=== PATIENT | female | born 1940 | race Caucasian/White ===

== ENCOUNTER 2017-06-30 07:42 | Inpatient (IN) | payer MEDICARE ==
[2017-06-30] MEDS ORDERED: Diazepam TAB(*) 5 MG ONE (08:34)
[2017-06-30 09:10] LABS: Hematocrit 41 % (35-47); Hemoglobin 13.8 g/dl (12.0-16.0); Mean Corpuscular HGB Conc 34 g/dl (31-36); Mean Corpuscular Hemoglobin 33 pg (27-31); Mean Corpuscular Volume 98 fL (80-97); Mean Platelet Volume 9 um3 (7.4-10.4); Red Blood Count 4.22 10^6/ul (4.0-5.4); Red Cell Distribution Width 13 % (10.5-15); White Blood Count 4.1 10^3/ul (3.5-10.8)
[2017-06-30 09:23] LABS: BUN/Creatinine Ratio 34.4 (8-20); Calcium 9.7 mg/dL (8.6-10.3); EGFR Non-African American 90.2 (>60)
[2017-06-30] MEDS ORDERED: Naloxone* 0.4 MG/ML 1 ML VIAL ONE (09:31)
[2017-06-30] MEDS ORDERED: Iohexol 300 (CONTRAST) 10 ML SDV ONE ×2 (09:31→10:30)
[2017-06-30] MEDS ORDERED: Midazolam* 1 MG/ML 5 ML VIAL (5 MG) ONE ×2 (09:31→10:17)
[2017-06-30] MEDS ORDERED: fentaNYL* 50 MCG/ML 2 ML VIAL (100 MCG VIAL) ONE (09:31)
[2017-06-30] MEDS ORDERED: Flumazenil* 0.1 MG/ML 5 ML MDV ONE (09:31)
[2017-06-30] MEDS ORDERED: Lidocaine 1% INJ* 10 MG/ML 30 ML SDV ONE (09:31)
[2017-06-30] MEDS ORDERED: Clindamycin 900 MG IVPREMIX(* 900 MG/50 ML SDV IV ONE (10:00)
[2017-06-30] MEDS ORDERED: Atropine SYRINGE* 0.1 MG/ML 10 ML SYRINGE (1 MG) ONE (10:02)
[2017-06-30] MEDS ORDERED: Acetaminophen TAB* 325 MG PO PRN (11:27)
--- NOTE | 2017-06-30 14:28 | RAD ---
Indication: Pacemaker placement. Single frontal view of the chest performed at 1243 hours was reviewed. No prior study is available for comparison. No mediastinal shift is noted. Heart is of normal size and configuration. Lung kirkpatrick appear clear. Pacemaker leads are in place. No pneumothorax is noted. IMPRESSION: NO ACTIVE CARDIOPULMONARY DISEASE IS NOTED.
[2017-06-30] MEDS: Clindamycin 300 MG IVPREMIX(* 300 MG/50 ML SDV IV SCH (18:17)
[2017-06-30] MEDS: Latanoprost 0.005%* 2.5 ml BTL BOTH EYES SCH (19:57)
[2017-06-30] MEDS: Zolpidem TAB* 10 MG PO PRN (19:57)
--- NOTE | 2017-07-01 00:13 | HP ---
CC: Dr. Easton; ALEX Steele * HISTORY AND PHYSICAL: DATE OF ADMISSION: 06/30/17 CHIEF COMPLAINT: Syncope. HISTORY OF PRESENT ILLNESS: Ms. Sorenson is a 77-year-old woman followed by Dr. Easton. She has had recurrent syncopal episodes and two in the last week. She had an episode eating Thanksgiving dinner where she felt acutely lightheaded and fell out of her chair waking up on the floor, and then recently when she bent over to tie her shoe, she felt lightheaded. Workup through Dr. Easton's office included a Holter monitor, which revealed both sick sinus syndrome with sinus pauses but additionally intermittent complete heart block with either no escape beats or very slow escape rhythm and the patient was advised to undergo pacemaker implantation immediately, she delayed this 24 hours and presented to the hospital today for pacemaker implantation and admission. The patient denied recent fevers, chills, or sweats. She is a right-handed person. No awareness of tick bites or rashes recently. PAST MEDICAL HISTORY: 1. The patient has past cardiac history of cardiomyopathy. 2. Left bundle branch block. 3. Mild dilatation of the ascending aorta. 4. Additional past medical history of irritable bowel syndrome. 5. Chronic fatigue syndrome. 6. Insomnia. 7. Hypothyroid disease. 8. Glaucoma. PAST SURGICAL HISTORY: Includes: 1. Cataract removal in 2004. 2. Tonsillectomy. 3. Foot surgeries in the past (bunselma 2008). OUTPATIENT MEDICATIONS: Include: 1. Calcium 800 mg a day. 2. Vitamin D3, 500 units 2 tablets daily. 3. Multivitamins 1 tablet daily. 4. Vitamin C 1000 mg a day. 5. Donna-C 2 mg t.i.d. 6. Vitamin E 400 units b.i.d. 7. [place] rea 400 mg t.i.d. 8. Pycnogenol 100 mg b.i.d. 9. Magnesium 2 g a day. 10. Probiotic 1 tablet daily. 11. Latanoprost ophthalmic drops 0.005%, 1 drop each eye h.s. 12. Bioidentical hormones b.i.d. 13. Thyroid hormone 175 mcg a day. 14. Coenzyme Q 200 mg b.i.d. ALLERGIES: Include PENICILLIN (hives). FAMILY HISTORY: Significant in that her father had a history of emphysema and of lung cancer, mother of heart disease in her 70s. She has a sibling with breast cancer and diabetes. SOCIAL HISTORY: The patient is , lives with her who is quite dependent on her and controlling. She is retired from [employer]. Former smoker. No history of alcohol use. PHYSICAL EXAMINATION GENERAL: The patient is an older woman, lying in bed at 30 degrees in no acute distress. VITAL SIGNS: The patient is 5 feet 6 inches, weighs 138 pounds with BMI of 22. On arrival, blood pressure 155/77, pulse was 67 and regular, oxygen saturation was 88% on room air, respiratory rate of 14. HEENT: Pupils equal and round. Mucous membranes are moist. NECK: Without increased JVP appreciated. Good carotid pulses. No audible bruits. LUNGS: Breath sounds clear with good affect. No wheezes, rales, or rhonchi. CORONARY: S1 and S2 regular with a 3/6 systolic murmur heard along the left sternal border. ABDOMEN: Soft and nontender. No hepatosplenomegaly or masses. EXTREMITIES: Lower extremities were free of edema and warm. NEUROLOGIC: Awake, alert, and oriented to person, place, and time. Cranial nerves II through XII intact. Grossly normal sensory and motor function in the upper and lower extremities as examined in the bed. Gait not checked. PSYCHOLOGIC: Pleasant and cooperative. SKIN: Warm and dry. No appreciable cyanosis of the lips or nail beds. DIAGNOSTIC DATA/LABORATORY DATA: Holter monitor from 06/28/17 reviewed as above showing normal sinus rhythm with sick sinus syndrome, episodic sinus rhythm with complete heart block and periods of asystole as well as episodes with a junctional escape rhythm and AV dissociation with a longstanding left bundle branch block. She also had episodes of premature atrial complexes and supraventricular tachycardia. The patient had episodes of weakness and nausea that correlated with an episode of asystole lasting 20 seconds and with episode of complete heart block with a very slow escape rhythm. The patient's echocardiogram from 05/05/16 showed [id number] left ventricular hypertrophy with an ejection fraction of 35% to 40% with abnormal septal wall motion. She had aortic valve thickening and sclerosis. Heavy mitral annular calcification posteriorly and mitral tricuspid insufficiency. Across the aortic valve, the median gradient was 10 mmHg and calculated aortic valve area is 1.7 cm squared by VTI. A 12-lead ECG from 06/28/17 showed sinus bradycardia, 54 beats a minute with a left bundle branch block. Labs on admission showed sodium 141, potassium 4.0, chloride 105, bicarbonate 30 , BUN 22, creatinine 0.64, glucose 109. INR 0.94, PTT 30.1, white count 4.1, hemoglobin 13.8, hematocrit 41, mean cell volume 98, and platelets 229,000. IMPRESSION AND PLAN: In summary, Verena Sorenson is 77-year-old woman with her current syncopal episodes, evidence of complete heart block and asystole and admitted for dual chamber pacemaker. She underwent an MRI compatible Medtronic dual chamber pacemaker implantation today without incident. Postoperatively, she again displayed evidence of intermittent supraventricular tachycardia and therefore, plans for initiation of metoprolol will be added. detention for her cardiomyopathy based on blood pressure, we could consider titrating beta kalpesh up further and/or initiation of KRISTAN inhibitor if the patient is amenable. We will recommend following her echo postimplant, she may need to be upgraded to a biventricular device in the future. [id number]/[facility] #: [id number] MTDRegan
[2017-07-01] MEDS: Clindamycin 300 MG IVPREMIX(* 300 MG/50 ML SDV IV SCH ×3 (02:51→18:36)
--- NOTE | 2017-07-01 03:42 | OP ---
CC: Dr. Easton * DATE OF PROCEDURE: 06/30/17 - ROOM #446 DATE OF : 42 SURGEON: Radha Brumfield MD. PRE-OP DIAGNOSIS: Syncope with complete heart block. POST-OP DIAGNOSIS: Syncope with complete heart block. PROCEDURE: Dual chamber pacemaker implantation. ESTIMATED BLOOD LOSS: Less than 5 cc. COMPLICATIONS: None. DESCRIPTION OF PROCEDURE: The indications, risks, and benefits of this procedure were discussed with the patient and details of the procedure including the potential for pneumothorax, bleeding, infection, injury to the heart in the presence of her family member. She is amenable to proceeding. The patient is right-handed and the left subclavian fossa was prepped and draped in the usual sterile fashion. A time-out procedure was called. A 10 cc of radiopaque dye was injected in the left upper extremity outlining the left axillary and left subclavian vein on fluoroscopy. Following this, the patient received local anesthesia with 1% lidocaine, a total of 20 cc. Following local anesthesia and sedation, (a total of 8 mg of Versed and 75 mcg of fentanyl). Using a #10 blade knife, a 2.5-cm incision was made in the left subclavian fossa and using Bovie and blunt dissection it was extended to the level of the pectoralis muscle. A small kelly was made in the fascia and using blunt dissection a small pocket was fashioned inferiorly and medially to the incision. Using fluoroscopic guidance and a modified Seldinger technique, the left subclavian vein was cannulated and the guidewire inserted. This procedure was repeated with a second guidewire. Using an introducer technique, the right ventricular lead was guided into the right ventricular apex with fluoroscopic guidance that was actively fixed in place pacing and sensing thresholds were checked. They were initially high, but stabilized and became excellent with time. Using the second guidewire in an introducer technique, using fluoroscopic guidance, the right atrial lead was guided into the right atrial appendage, actively fixed in place. Pacing and sensing thresholds were checked and found to be good. The leads were then carefully positioned for adequate slack. They were sutured to the pocket using 0 silk suture. The pocket then was copiously irrigated using normal saline and following this, the leads were attached to the device. The device was placed in the pocket and the pocket was closed using 2 layers of absorbable suture, 2-0 followed by 4-0 followed by olivier and an external dressing. FINDINGS: The pacemaker system is an Medtronic MRI compatible system. The device is a Medtronic model A2DR01, serial #[id number]. The atrial lead is a Medtronic model 5076-45, serial number [id number]. The ventricular lead is a Medtronic model 5076-52, serial #[id number]. P-waves were sensed at 1.8 mV with an atrial lead impedance of 534 ohms and an atrial pacing threshold of 1.3 volts at 0.5 msec. The ventricular lead impedance was 791 ohms with R-wave sensed at 7.2 mV and a ventricular pacing threshold of 1 volt at 0.5 msec (external measurements). CONCLUSION: Successful dual chamber pacemaker implantation with an MRI compatible device. No complications. The patient was hemodynamically stable throughout the procedure and on transfer to the floor. [id number]/[facility] #: [id number] BRITNEY
[2017-07-01] MEDS: Metoprolol Succinate XL TAB* 25 MG PO SCH (08:01)
--- NOTE | 2017-07-01 10:25 | RAD ---
Indication: Status post device implant. 2 views of the chest demonstrates large left pneumothorax. Right lung field is clear. Pacemaker leads are in place. This was not present on prior exam of June 30, 2017. IMPRESSION: Large left pneumothorax is noted. Modesta the nurse on 4 S. was notified of the results. She will inform Dr. Brumfield.
--- NOTE | 2017-07-01 11:21 | PN ---
Subjective Date of Service: 07/01/17 - CC: syncope Interval History: The patient states that overall she feels better. Yesterday O2 sats low, improved today. No SOB, not dizzy. Medications Active Medications: Acetaminophen (Tylenol Tab*) 650 mg PO Q4H PRN PRN Reason: PAIN Last Admin: 06/30/17 19:56 Dose: 650 mg Clindamycin HCl/Dextrose (Cleocin 300 Mg Ivpemix(*)) 300 mg in 50 mls @ 200 mls /hr IV Q8H RAFITA Last Admin: 07/01/17 10:38 Dose: 200 mls/hr Latanoprost (Xalatan 0.005%*) 1 drop BOTH EYES BEDTIME RAFITA Last Admin: 06/30/17 19:57 Dose: 1 drop Metoprolol Succinate (Toprol Xl Tab*) 25 mg PO DAILY RAFITA Last Admin: 07/01/17 08:01 Dose: 25 mg Zolpidem Tartrate (Ambien Tab*) 10 mg PO BEDTIME PRN PRN Reason: INSOMNIA Last Admin: 06/30/17 19:57 Dose: 10 mg Objective Vital Signs: Temp Pulse Resp BP Pulse Ox 98.5 F 62 24 140/80 96 07/01/17 07:35 07/01/17 11:07 07/01/17 07:35 07/01/17 11:07 07/01/17 11:07 Oxygen Devices in Use Now: None, Nasal Cannula Appearance: elderly female, lying flat, appears comfortable. Eyes: No Scleral Icterus, PERRLA Ears/Nose/Mouth/Throat: Clear Oropharnyx, Mucous Membranes Moist Neck: Trachea Midline, No Thyroid Enlargement, Masses Respiratory: Clear to Auscultation - diminished bs left Cardiovascular: RRR Extremities: No Edema Skin: No Rash or Ulcers - incision left subclavian fossa without ecchymosis, hematoma or infection. Neurological: Alert and Oriented x 3, NL Muscle Strength and Tone Lines/Tubes/Other Access: Clean, Dry and Intact Peripheral IV Laboratory Results: 06/30/17 08:45 06/30/17 08:45 INR (Anticoag Therapy) 0.94 (0.89-1.11) 06/30/17 08:45 APTT 30.1 seconds (26.0-36.3) 06/30/17 08:45 Diagnostic Imaging: CXR 06/30/17 No pneumthorax, good lead placement. CXR 07/01/17: Large left pneumothorax. Lead remain in chambers, appear different, ? do to shift from pneumo? EKG Data: NSR, occasional bursts SVT, intermittant V pacing. Interogation: DDD 60 bpm, AV delat 250 ms A Sense 1.9 mv Impedance 456 Ohms, Pace: 0.5 mv @ 0.4 ms V Sense 19.9 mv Imbedance 608 Ohms Pace: 0.75 v @ 0.4 ms Assessment/Plan 77 yo with new syncope, longstanding LBBB, moderate CM and newly diagnosed SSS and CH block POD #1 dual pacemaker implantation. Complication: pneumothorax. Points of Discussion: CHB: -Good pacemaker function. SVT: -May be due to pneumothorax, but initiate metoprolol XL, was seen pre implantation as well. Pneumothorax: Surgical consult for chest tube. CM: -Toprol XL for now, may benefit from ACEI or higher doses if the patient amenable.
--- NOTE | 2017-07-01 14:41 | RAD ---
Indication: Follow-up LEFT pneumothorax Comparison: July 01, 2017 0900 hours. Technique: Upright AP 1400 hours Report: LEFT apical Heimlich valve chest tube in place. No residual LEFT pneumothorax visible. Minimal subsegmental atelectasis at the LEFT midlung zone. Negative for mediastinal shift. RIGHT atrial and RIGHT ventricular level pacemaker leads are unchanged. Upper normal heart size. Unremarkable central pulmonary vasculature. IMPRESSION: LEFT apical Heimlich valve chest tube in place with resolution of previous pneumothorax.
[2017-07-01] MEDS: Latanoprost 0.005%* 2.5 ml BTL BOTH EYES SCH (20:30)
[2017-07-01] MEDS: Zolpidem TAB* 10 MG PO PRN (20:30)
--- NOTE | 2017-07-02 01:10 | OP ---
CC: Dr. Radha Brumfield; ALEX Steele * DATE OF OPERATION: 07/01/17 - ROOM #446 DATE OF : 42 SURGEON: Valdemar Mccormack MD POULTRY SERVICE TECHNICIAN: None. ANESTHESIOLOGIST: ANESTHESIOLOGIST: None. PRE-OP DIAGNOSIS: Left pneumothorax, status post pacemaker placement. POST-OP DIAGNOSIS: Left pneumothorax, status post pacemaker placement. OPERATIVE PROCEDURE: Placement of left pneumothorax catheter with Heimlich valve. DESCRIPTION OF PROCEDURE: The patient was supine on the stretcher in the procedure room. The left chest was prepped with antiseptic, draped in a sterile fashion. Local infiltrative anesthesia was administered. A skinny professional driver needle was used to identify the pneumothorax and then the pneumothorax catheter was placed over the third rib into the pleural space. Again, air was readily aspirated as the catheter was advanced and sutured to the skin with 3-0 silk and was hooked up to the Heimlich valve and a sterile dressing was placed. She tolerated the procedure well. After the procedure, her supplemental oxygen was removed and she was able to maintain her oxygenation. She looked good. Everything was in good condition. A portable chest x-ray will be obtained and then she will go back up to the medical floor. [id number]/[facility] #: [id number] MTDD
[2017-07-02] MEDS: Clindamycin 300 MG IVPREMIX(* 300 MG/50 ML SDV IV SCH ×2 (02:22→09:18)
--- NOTE | 2017-07-02 08:47 | RAD ---
INDICATION: [id number] COMPARISON: July 01, 2017 TECHNIQUE: An AP portable view obtained at 0822 hours is submitted. FINDINGS: Bones/Soft Tissues: There are no acute bony findings. There is recent left-sided cardiac pacemaker placement. There is a small caliber chest tube projected over the left lung apex. Cardiomediastinal: The cardiomediastinal silhouette is normal. Lungs: There are no infiltrates. There is no pneumothorax. Pleura: There are no pleural effusions. Other: None IMPRESSION: NO CURRENT PNEUMOTHORAX. LUNGS CLEAR.
[2017-07-02] MEDS: Metoprolol Succinate XL TAB* 25 MG PO SCH (09:18)
--- NOTE | 2017-07-02 10:00 | PN ---
Progress Note - Progress Note Date of Service: 07/02/17 SOAP: Subjective: Patient seen and examined at bedside. Reports feeling much better today. Denies any chest pain or SOB. Feels more energetic, looking forward to going to home possibly later today. Objective: Awake and alert, comfortable in bed, in NAD Vitals reviewed, afebrile, oxygen sats stable Lungs CTA bilat. Heimlich valve tested at bedside, no evidence of leak. Valve removed, Vaseline gauze and dressing applied. Heart RRR CXR reviewed with DR. Mccormack, Alison lung remains up, no pneumothorax Assessment: A 77 y/o female with resolved L pneumothorax, s/p pacemaker placement. Plan: D/C plans per medicine and cardiology. May remove dressings and shower in 48 hours No surgical issues at this time, please call if any changes. Sign off patient.
--- NOTE | 2017-07-02 14:17 | PN ---
Subjective Date of Service: 07/02/17 Interval History: f/u pacemaker chest tube removed this AM for pneumothorax Patient asymptomatic, denies cp, dyspnea, Was noted to be ok with surgery to d/c home Medications Active Medications: Acetaminophen (Tylenol Tab*) 650 mg PO Q4H PRN PRN Reason: PAIN Last Admin: 06/30/17 19:56 Dose: 650 mg Clindamycin HCl/Dextrose (Cleocin 300 Mg Ivpemix(*)) 300 mg in 50 mls @ 200 mls /hr IV Q8H RAFITA Last Admin: 07/02/17 09:18 Dose: 200 mls/hr Latanoprost (Xalatan 0.005%*) 1 drop BOTH EYES BEDTIME RAFITA Last Admin: 07/01/17 20:30 Dose: 1 drop Metoprolol Succinate (Toprol Xl Tab*) 25 mg PO DAILY RAFITA Last Admin: 07/02/17 09:18 Dose: 25 mg Zolpidem Tartrate (Ambien Tab*) 10 mg PO BEDTIME PRN PRN Reason: INSOMNIA Last Admin: 07/01/17 20:30 Dose: 10 mg Objective Vital Signs: Temp Pulse Resp BP Pulse Ox 98.5 F 72 20 125/78 95 07/02/17 07:33 07/02/17 07:33 07/02/17 08:00 07/02/17 07:33 07/02/17 10:00 Oxygen Devices in Use Now: None Appearance: elderly female, lying flat, appears comfortable. Eyes: No Scleral Icterus, PERRLA Ears/Nose/Mouth/Throat: Clear Oropharnyx, Mucous Membranes Moist Neck: Trachea Midline, No Thyroid Enlargement, Masses Respiratory: Clear to Auscultation - b/l,, - - pacemaker bandage intact without evidence of hematoma or drainage, chest tube removal site intact and bandage in place Cardiovascular: RRR Extremities: No Edema Skin: No Rash or Ulcers - incision left subclavian fossa without ecchymosis, hematoma or infection. Neurological: Alert and Oriented x 3, NL Muscle Strength and Tone Lines/Tubes/Other Access: Clean, Dry and Intact Peripheral IV Laboratory Results: 06/30/17 08:45 06/30/17 08:45 INR (Anticoag Therapy) 0.94 (0.89-1.11) 06/30/17 08:45 APTT 30.1 seconds (26.0-36.3) 06/30/17 08:45 Diagnostic Imaging: CXR 06/30/17 No pneumthorax, good lead placement. CXR 07/01/17: Large left pneumothorax. cxr 07/02/2017: No current pneumothorax, lungs clear EKG Data: NSR, occasional bursts SVT, intermittant V pacing. Interogation: DDD 60 bpm, AV delat 250 ms A Sense 1.9 mv Impedance 456 Ohms, Pace: 0.5 mv @ 0.4 ms V Sense 19.9 mv Imbedance 608 Ohms Pace: 0.75 v @ 0.4 ms Assessment/Plan 77 yo with new syncope, longstanding LBBB, moderate CM and newly diagnosed SSS and CH block s/p dual pacemaker implantation 06/30/2017 complicated by pneumothorax left sided now s/p chest tube replacement and resolved Points of Discussion: Will send toprol 25 mg and oral clindamycin to her pharmacy Patient to be discharged today
--- NOTE | 2017-07-02 14:45 | DS ---
Admission Date: 06/30/17 Discharge date: 07/02/2017 Dry End Tester: Dr. Easton PCP: ALEX Steele Diagnosis: Heart block status-post pacemaker Secondary diagnosis: LBBB Cardiomyopathy LVEF 35-40% OUTPATIENT MEDICATIONS: Include: 1. Calcium 800 mg a day. 2. Vitamin D3, 500 units 2 tablets daily. 3. Multivitamins 1 tablet daily. 4. Vitamin C 1000 mg a day. 5. Donna-C 2 mg t.i.d. 6. Vitamin E 400 units b.i.d. 7. [place] rea 400 mg t.i.d. 8. Pycnogenol 100 mg b.i.d. 9. Magnesium 2 g a day. 10. Probiotic 1 tablet daily. 11. Latanoprost ophthalmic drops 0.005%, 1 drop each eye h.s. 12. Bioidentical hormones b.i.d. 13. Thyroid hormone 175 mcg a day. 14. Coenzyme Q 200 mg b.i.d. 15. Adding toprol 25 mg po daily 16. Adding clindamycin 150 mg PO TID x 2 days. HISTORY OF PRESENT ILLNESS: Ms. Sorenson is a 77-year-old woman admitted with symptomatic heart block and had a dual chamber MRI compatible medtronic pacemaker by Dr. Radha Brumfield. Follow up interrogation with device functioning well. Patient had a left sided pneumothorax as a complication of the procedure and had a chest tube placed . A follow up chest -ray 07/02 showed pneumothorax resolved, chest tube removed and patient was ok to be discharged as per surgery. Has been receiving IV clindamycin for infective prophylaxis. Will continue 2 day oral course as above. Discharge instructions: See separate documents Follow up appointment to be arranged Patient to have low threshold to call for EMS including but not limited to dyspnea, palpitations, non-incisional chest pain, lightheadedness or syncope.
[2017-07-02 15:01] VITALS: BP 123/86
== END 2017-07-02 16:26 | disposition home or self-care (01) | DRG 243 ==
LOC: CHICATH 07:42 → INTOOBSV 11:27 → MEDTELE 11:27 → OBSVTOIN 07-01 11:53
PROVIDERS: ADMIT Specialist; ATTEND Specialist
PROC: 02H63JZ Insertion of Pacemaker Lead into Right Atrium, Percutaneous Approach (ICD-10-PCS; 2017-06-30)
PROC: 02HK3JZ Insertion of Pacemaker Lead into Right Ventricle, Percutaneous Approach (ICD-10-PCS; 2017-06-30)
PROC: 0JH606Z Insertion of Pacemaker, Dual Chamber into Chest Subcutaneous Tissue and Fascia, Open Approach (ICD-10-PCS; principal; 2017-06-30 09:00)
PROC: 0W9B30Z Drainage of Left Pleural Cavity with Drainage Device, Percutaneous Approach (ICD-10-PCS; 2017-07-01)
DX: I44.2 Atrioventricular block, complete (principal); I42.9 Cardiomyopathy, unspecified; I42.8 Other cardiomyopathies; I71.2 Thoracic aortic aneurysm, without rupture; I44.7 Left bundle-branch block, unspecified; E78.2 Mixed hyperlipidemia; M51.16 Intervertebral disc disorders with radiculopathy, lumbar region; R53.82 Chronic fatigue, unspecified; E03.9 Hypothyroidism, unspecified; R94.31 Abnormal electrocardiogram [ECG] [EKG]; I51.7 Cardiomegaly; H40.9 Unspecified glaucoma; I08.0 Rheumatic disorders of both mitral and aortic valves; Z98.49 Cataract extraction status, unspecified eye; Z80.1 Family history of malignant neoplasm of trachea, bronchus and lung; Z82.49 Family history of ischemic heart disease and other diseases of the circulatory system; Z83.3 Family history of diabetes mellitus; Z87.891 Personal history of nicotine dependence; Z88.0 Allergy status to penicillin; Z80.3 Family history of malignant neoplasm of breast; Y83.8 Other surgical procedures as the cause of abnormal reaction of the patient, or of later complication, without mention of misadventure at the time of the procedure; J95.811 Postprocedural pneumothorax; K58.9 Irritable bowel syndrome, unspecified; Y92.239 Unspecified place in hospital as the place of occurrence of the external cause; I47.1 Supraventricular tachycardia
CPT/HCPCS: 33208; 36415; 71010; 71020; 80048; 85025; 85610; 85730; 93005; 93226; 99156; 99157; A9270-GY; C1785; C1898; J0461; J2250; J2310; J3010; Q9967